=== PATIENT | male | born 1975 | race Caucasian/White ===

== ENCOUNTER 2020-08-13 10:04 | Emergency (ER) | payer SELFPAY ==
[~2020-08-13] VITALS: Ht 172.7 cm; Wt 77.1 kg
[2020-08-13 10:09] VITALS: BP 181/112
--- NOTE | 2020-08-13 10:34 | NUR ---
44/M PRESENTS TO ED WITH C/O LOWER BACK PAIN X1 MONTH. PATIENT STATES HE HAS HAD CONSTANT 5/10 BURNING LOWER BACK PAIN THAT HAS WORSENED OVER THE LAST 2-3 WEEKS. PATIENT DENIES TRAUMA, STATES HE HAS TAKEN MEDICATION FOR PAIN WITH NO RELIEF. PATIENT DENIES FEVER/CHILLS, DENIES NAUSEA/VOMITING, DENIES DYSURIA/HEMATURIA. PATIENT IS ABLE TO AMBULATE WITHOUT ASSISTANCE, HAS LIMITED RANGE OF MOTION DUE TO PAIN.
[2020-08-13] MEDS: KETOROLAC 60 MG/2 ML VIAL IM ONE (10:43)
[2020-08-13] MEDS ORDERED: ACET-8386 PO (11:10)
[2020-08-13] MEDS ORDERED: IBUP-2213 PO (11:10)
--- NOTE | 2020-08-13 11:14 | NUR ---
FPatient discharged with v/s stable. Written and verbal after care instructions given and explained. Patient alert, oriented and verbalized understanding of instructions. Ambulatory with steady gait. All questions addressed prior to discharge. ID band removed. Patient advised to follow up with PMD. Rx of Dale and Ibuprofen given. Patient educated on indication of medication including possible reaction and side effects. Opportunity to ask questions provided and answered.
[2020-08-13 11:15] VITALS: BP 181/112
== END 2020-08-13 11:14 | disposition home or self-care (01) ==
LOC: MED 10:04
DX: M54.5 Low back pain (principal); I10 Essential (primary) hypertension
CPT/HCPCS: 81002; 96372; 99283; J1885

== ENCOUNTER 2021-02-08 01:06 | Emergency (ER) | payer MEDICAID ==
[~2021-02-08] VITALS: Ht 172.7 cm; Wt 90.8 kg
[~2021-02-08 01:06] MED LIST: ACET-8386 PO; IBUP-2213 PO
[2021-02-08 01:10] VITALS: BP 154/94
--- NOTE | 2021-02-08 01:10 | NUR ---
PT AMBULATED TO BED 01.
[2021-02-08 02:25] LABS: BASOPHILS % (AUTO) 0.5 % (0.0-2.0); EOSINOPHILS # (AUTO) 0.1 K/uL (0-0.4); EOSINOPHILS % (AUTO) 0.7 % (0.0-4.0); HEMATOCRIT 46.9 % (36-52); HEMOGLOBIN 16.5 g/dL (12.0-18.0); LYMPHOCYTES # (AUTO) 1.4 K/uL (2.0-11.5); LYMPHOCYTES % (AUTO) 17.4 % (20.5-51.1); MEAN CORPUSCULAR HEMOGLOBIN 31 pg (27-31); MEAN CORPUSCULAR HGB CONC 35 g/dL (33-37); MEAN CORPUSCULAR VOLUME 86.6 fL (80-94); MONOCYTES # (AUTO) 0.5 K/uL (0.8-1.0); MONOCYTES % (AUTO) 6.2 % (1.7-9.3); NEUTROPHILS # (AUTO) 5.9 K/uL (1.8-7.7); NEUTROPHILS % (AUTO) 75.2 % (42.2-75.2); PLATELET COUNT (AUTO) 186 K/uL (140-450); RED BLOOD CELL COUNT(AUTO) 5.42 MIL/uL (4.20-6.10); WHITE BLOOD COUNT (AUTO) 7.8 K/uL (4.8-10.8)
[2021-02-08 02:35] LABS: CARBON DIOXIDE 25.4 mmol/L (21-32); CREATININE 1.2 mg/dL (0.6-1.3); POTASSIUM 3.4 mmol/L (3.5-5.1)
[2021-02-08 02:52] LABS: ALBUMIN 4.2 g/dL (3.4-5.0); BILIRUBIN,DIRECT 0.1 mg/dL (0.0-0.3); TOTAL BILIRUBIN 0.7 mg/dL (0.0-1.0)
[2021-02-08 03:34] VITALS: BP 132/72
== END 2021-02-08 03:30 | disposition home or self-care (01) ==
LOC: MED 01:06
DX: R07.89 Other chest pain (principal); R00.2 Palpitations; I10 Essential (primary) hypertension; Z79.899 Other long term (current) drug therapy
CPT/HCPCS: 36415; 71045; 80048; 80076; 83690; 84484; 85025; 93005; 99285

== ENCOUNTER 2021-07-20 05:20 | Emergency (ER) | payer MEDICAID, OTHER ==
[~2021-07-20] VITALS: Ht 165.1 cm; Wt 75.7 kg
[2021-07-20 05:23] VITALS: BP 161/94
--- NOTE | 2021-07-20 05:25 | NUR ---
Dr. Aragon examining patient.
--- NOTE | 2021-07-20 05:32 | NUR ---
SEEN BY CHANDU NO NURSING INTERVENTIONS NEEDED FOR PT
--- NOTE | 2021-07-20 05:32 | NUR ---
PATIENT DISCHARGED BY CHANDU LUTHER.
== END 2021-07-20 05:32 | disposition home or self-care (01) ==
LOC: MED 05:20
DX: R00.2 Palpitations (principal); R06.4 Hyperventilation; I10 Essential (primary) hypertension; F41.9 Anxiety disorder, unspecified; Z79.899 Other long term (current) drug therapy
CPT/HCPCS: 93005; 99283

== ENCOUNTER 2022-01-21 08:37 | Emergency (ER) | payer MEDICAID ==
[~2022-01-21] VITALS: Ht 170.4 cm; Wt 83.6 kg
[2022-01-21 08:54] VITALS: BP 161/98
--- NOTE | 2022-01-21 09:03 | NUR ---
Caleb stevens in ED - 01/21/22 at 0907 by [email or web address] PT AMB TO BED 11.
--- NOTE | 2022-01-21 09:05 | NUR ---
PT AMBULATED TO BED 10 WITH STEADY GAIT.
--- NOTE | 2022-01-21 09:28 | NUR ---
46M PRESENTS TO ED WITH C/O 9/10 PENILE AND RIGHT TESTICLE PAIN X3 DAYS. PT REPORTS INTERMITTENT PULSATING LIKE PAIN THAT WORSENS UPON URINATION. PT REPORTS DYSURIA, URINARY FREQUENCY, STATES THICK DISCHARGE TODAY. DENIES CONCERNS FOR STD'S, DENIES N/V/D, FEVERS, CHILLS. PT DENIES TAKING MEDICATION FOR ANY PAIN.
--- NOTE | 2022-01-21 09:28 | NUR ---
ULTRASOUND AT BEDSIDE.
[2022-01-21 10:09] LABS: APPEARANCE,URINE CLEAR (CLEAR); BILIRUBIN,URINE NEGATIVE (NEGATIVE); BLOOD, URINE NEGATIVE (NEGATIVE); COLOR,URINE OTHER (YELLOW); LEUKOCYTE ESTERASE ,URINE NEGATIVE (NEGATIVE); NITRITE, URINE NEGATIVE (NEGATIVE); UGLUCOSE NEGATIVE (NEGATIVE)
[2022-01-21] MEDS ORDERED: cefTRIAXone 500 MG in LIDOCAINE MPF 1% 1 ML IM ONE (10:25)
[2022-01-21] MEDS ORDERED: cefTRIAXone 500 MG VIAL ONE (10:29)
[2022-01-21] MEDS ORDERED: LIDOCAINE MPF 1% 5 ML ONE (10:31)
[2022-01-21] MEDS ORDERED: DOXY-690 PO (11:02)
--- NOTE | 2022-01-21 11:18 | NUR ---
Patient discharged with v/s stable. Written and verbal after care instructions ABOUT HYDROCELE given and explained. Patient alert, oriented and verbalized understanding of instructions. Ambulatory with steady gait. All questions addressed prior to discharge. ID band removed. Patient advised to follow up with PMD. Rx of VIBRAMYCIN given. Patient educated on indication of medication including possible reaction and side effects. Opportunity to ask questions provided and answered.
[2022-01-21 11:19] VITALS: BP 143/96
== END 2022-01-21 11:19 | disposition home or self-care (01) ==
LOC: MED 08:37
DX: N50.811 Right testicular pain (principal); I10 Essential (primary) hypertension; Z20.2 Contact with and (suspected) exposure to infections with a predominantly sexual mode of transmission; Z79.899 Other long term (current) drug therapy
CPT/HCPCS: 76870; 81003; 96372; 99284; J0696; J2001; Q0092

== ENCOUNTER 2022-04-02 01:28 | Emergency (ER) | payer MEDICAID ==
[~2022-04-02] VITALS: Ht 170.2 cm; Wt 78.0 kg
[~2022-04-02 01:28] MED LIST changes: -ACET-8386 PO; +ACET-8905 PO; +DOXY-690 PO
[2022-04-02 01:40] VITALS: BP 150/100
--- NOTE | 2022-04-02 01:43 | NUR ---
TO LOBBY A/W BED AMBULATORY
--- NOTE | 2022-04-02 01:54 | NUR ---
PT TAKEN TO BED 8
[2022-04-02] MEDS ORDERED: ASPIRIN 325 MG TAB PO ONE (03:35)
[2022-04-02] MEDS ORDERED: LORazepam 0.5 MG TAB PO ONE (03:35)
--- NOTE | 2022-04-02 03:35 | NUR ---
X-Ray at bedside.
[2022-04-02] MEDS ORDERED: LORazepam 0.5 MG TAB ONE (03:38)
[2022-04-02] MEDS ORDERED: ASPIRIN 325 MG TAB ONE (03:38)
--- NOTE | 2022-04-02 03:43 | NUR ---
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 Patient tolerated well.
[2022-04-02 03:48] LABS: BASOPHILS % (AUTO) 0.6 % (0.0-2.0); EOSINOPHILS # (AUTO) 0.1 K/uL (0-0.4); EOSINOPHILS % (AUTO) 0.6 % (0.0-4.0); HEMOGLOBIN 16.1 g/dL (12.0-18.0); LYMPHOCYTES # (AUTO) 1.3 K/uL (2.0-11.5); LYMPHOCYTES % (AUTO) 17.1 % (20.5-51.1); MEAN CORPUSCULAR HEMOGLOBIN 30 pg (27-31); MEAN CORPUSCULAR HGB CONC 34 g/dL (33-37); MEAN CORPUSCULAR VOLUME 87.5 fL (80-94); MONOCYTES # (AUTO) 0.4 K/uL (0.8-1.0); NEUTROPHILS % (AUTO) 76.7 % (42.2-75.2); PLATELET COUNT (AUTO) 175 K/uL (140-450); RED BLOOD CELL COUNT(AUTO) 5.37 MIL/uL (4.20-6.10); RED CELL DISTRIBUTION WIDTH 13.1 % (11.6-13.7); WHITE BLOOD COUNT (AUTO) 7.8 K/uL (4.8-10.8)
[2022-04-02 04:02] LABS: ANION GAP 11.6 (8-16); CARBON DIOXIDE 30.2 mmol/L (21-32); CHLORIDE 105 mmol/L (98-107); CREATININE 0.9 mg/dL (0.6-1.3); GFR ARICAN-AMERICAN 118 mL/min (>90); GLUCOSE 107 mg/dL (74-106); POTASSIUM 3.8 mmol/L (3.5-5.1); SODIUM SERUM 143 mmol/L (136-145); UREA NITROGEN, BLOOD 14 mg/dL (7-18)
[2022-04-02 04:12] LABS: ASPARTATE AMINOTRANSFERASE 21 U/L (15-37); LIPASE 126 U/L (73-393); TOTAL BILIRUBIN 0.7 mg/dL (0.0-1.0)
[2022-04-02 05:33] VITALS: BP 155/68
--- NOTE | 2022-04-02 05:34 | NUR ---
Patient discharged with v/s stable. Written and verbal after care instructions given and explained. Patient verbalized understanding. Ambulatory with steady gait. All questions addressed prior to discharge. Advised to follow up with PMD.
== END 2022-04-02 05:34 | disposition home or self-care (01) ==
LOC: MED 01:28
DX: R07.89 Other chest pain (principal); R00.2 Palpitations; R06.02 Shortness of breath; I10 Essential (primary) hypertension; Z79.899 Other long term (current) drug therapy
CPT/HCPCS: 36415; 71045; 80053; 83690; 84484; 85025; 99284; Q0092

== ENCOUNTER 2022-06-17 20:22 | Emergency (ER) | payer OTHER, MEDICAID ==
[~2022-06-17] VITALS: Ht 170.2 cm; Wt 78.0 kg
[2022-06-17 20:30] VITALS: BP 159/96
--- NOTE | 2022-06-17 20:33 | NUR ---
TO LOBBY A/W BED AMBULATORY
[2022-06-17 23:46] VITALS: BP 159/96
== END 2022-06-17 23:46 | disposition home or self-care (01) ==
LOC: MED 20:22
DX: G44.209 Tension-type headache, unspecified, not intractable (principal); I10 Essential (primary) hypertension; Z79.899 Other long term (current) drug therapy
CPT/HCPCS: 99282

== ENCOUNTER 2022-07-26 12:17 | Emergency (ER) | payer OTHER, MEDICAID ==
[~2022-07-26] VITALS: Ht 172.7 cm; Wt 81.6 kg
[2022-07-26 12:24] VITALS: BP 137/93
--- NOTE | 2022-07-26 13:00 | NUR ---
AMBULATES TO CHAIR B WITH NO DIFFICULTIES
[2022-07-26] MEDS ORDERED: KETOROLAC 30 MG/ML VIAL IM ONE (14:25)
[2022-07-26] MEDS ORDERED: PROCHLORPERAZINE 5 MG TAB PO ONE (14:25)
[2022-07-26] MEDS ORDERED: NAPR-54 PO (15:39)
[2022-07-26] MEDS ORDERED: ZOLP5TAB1 PO (15:39)
== END 2022-07-26 15:54 | disposition home or self-care (01) ==
LOC: MED 12:17
DX: R51.9 Headache, unspecified (principal); I10 Essential (primary) hypertension; Z79.899 Other long term (current) drug therapy
CPT/HCPCS: 70450; 96372; 99285; J1885; Q0164

== ENCOUNTER 2023-04-02 11:39 | Emergency (ER) | payer OTHER, MEDICAID ==
[~2023-04-02] VITALS: Ht 167.6 cm; Wt 90.7 kg
[~2023-04-02 11:39] MED LIST changes: +NAPR-54 PO; +ZOLP5TAB1 PO
[2023-04-02 11:51] VITALS: BP 164/104; PULSE 62; RESP 18; TEMP 97; O2SAT 98
[2023-04-02 13:28] LABS: BASOPHILS % (AUTO) 0.4 % (0.0-2.0); EOSINOPHILS # (AUTO) 0.1 K/uL (0-0.4); EOSINOPHILS % (AUTO) 1.2 % (0.0-4.0); HEMATOCRIT 50.1 % (36-52); HEMOGLOBIN 17.6 g/dL (12.0-18.0); LYMPHOCYTES # (AUTO) 1.4 K/uL (2.0-11.5); LYMPHOCYTES % (AUTO) 22.2 % (20.5-51.1); MEAN CORPUSCULAR HEMOGLOBIN 31 pg (27-31); MEAN CORPUSCULAR HGB CONC 35 g/dL (33-37); MEAN CORPUSCULAR VOLUME 87.2 fL (80-94); MONOCYTES # (AUTO) 0.4 K/uL (0.8-1.0); MONOCYTES % (AUTO) 5.9 % (1.7-9.3); NEUTROPHILS # (AUTO) 4.6 K/uL (1.8-7.7); NEUTROPHILS % (AUTO) 70.3 % (42.2-75.2); PLATELET COUNT (AUTO) 191 K/uL (140-450); RED BLOOD CELL COUNT(AUTO) 5.75 MIL/uL (4.20-6.10); RED CELL DISTRIBUTION WIDTH 13.6 % (11.6-13.7); WHITE BLOOD COUNT (AUTO) 6.5 K/uL (4.8-10.8)
[2023-04-02 13:35] LABS: ANION GAP 11.2 (8-16); CALCIUM 9.3 mg/dL (8.5-10.1); CARBON DIOXIDE 27.6 mmol/L (21-32); POTASSIUM 3.8 mmol/L (3.5-5.1)
[2023-04-02 13:48] VITALS: TEMP 98.5
[2023-04-02 15:23] VITALS: BP 144/94; PULSE 58; RESP 17; O2SAT 97
== END 2023-04-02 15:15 | disposition home or self-care (01) ==
LOC: MED 11:39
DX: R07.89 Other chest pain (principal); I10 Essential (primary) hypertension; E78.5 Hyperlipidemia, unspecified; Z79.899 Other long term (current) drug therapy; Z79.1 Long term (current) use of non-steroidal anti-inflammatories (NSAID)
CPT/HCPCS: 36415; 71045; 80048; 84484; 85025; 93005; 99285

== ENCOUNTER 2023-10-28 12:37 | Emergency (ER) | payer MEDICAID, OTHER ==
[~2023-10-28] VITALS: Ht 170.2 cm; Wt 90.7 kg
[~2023-10-28 12:37] MED LIST changes: +NAPR-337 PO; -NAPR-54 PO
[2023-10-28 12:50] VITALS: BP 151/99; PULSE 88; RESP 18; TEMP 97.4; O2SAT 96
[2023-10-28] MEDS: LIDOCAINE MPF 1% 10 MG/ML VIAL INJ ONE (14:12)
[2023-10-28] MEDS: BACITRACIN OINT 500 UNITS/GM PKT TP ONE (14:13)
[2023-10-28] MEDS ORDERED: BACI-418 TP (15:43)
[2023-10-28] MEDS ORDERED: IBUP-2213 PO (15:43)
[2023-10-28 16:09] VITALS: BP 144/97; PULSE 61; RESP 18; TEMP 36.33624; O2SAT 100
== END 2023-10-28 16:09 | disposition home or self-care (01) ==
LOC: MED 12:37
DX: S51.011A Laceration without foreign body of right elbow, initial encounter (principal); I10 Essential (primary) hypertension; Z79.899 Other long term (current) drug therapy; W22.8XXA Striking against or struck by other objects, initial encounter; Y92.89 Other specified places as the place of occurrence of the external cause; Y93.89 Activity, other specified; Y99.8 Other external cause status
CPT/HCPCS: 12001; 99282; J2001